=== PATIENT | female | born 1960 | race African-American/Black ===

== ENCOUNTER 2017-10-16 10:12 | Inpatient (IN) | payer MEDICARE, MEDICAID ==
[~2017-10-16] VITALS: Ht 160 cm; Wt 54.0 kg
[2017-10-16] MEDS ORDERED: THEO200T17 PO (10:19)
[2017-10-16] MEDS ORDERED: OXYC10TA58 PO (10:19)
[2017-10-16] MEDS ORDERED: KEPP500 PO (10:19)
[2017-10-16 10:40] LABS: BASOPHILS % 1.9 % (0.0-2.0); EOSINOPHILS % 2.6 % (0.0-5.0); HEMOGLOBIN. 13.1 g/dL (12.0-16.0); LYMPHOCYTES % 33.7 % (20.0-50.0); MEAN CORPUSCULAR HEMOGLOBIN 29.8 pg (28.0-32.0); MEAN CORPUSCULAR VOLUME 90.6 fL (81.0-99.0); MEAN PLATELET VOLUME 8.5 fl (7.4-10.4); MONOCYTES % 7.9 % (2.0-8.0); NEUTROPHILS % 53.9 % (40.0-76.0); PLATELET 290 x1000/uL (130-400); RED BLOOD CELL COUNT 4.41 mill/uL (4.2-5.4)
[2017-10-16 10:45] LABS: CHLORIDE 108 mEq/L (98-107)
[2017-10-16] MEDS ORDERED: DIPHENHYDRAMINE 50MG/ML VIAL IV ONE (10:45)
[2017-10-16] MEDS ORDERED: PROCHLORPERAZINE 10MG/2ML VIAL IV ONE (10:45)
[2017-10-16 10:49] LABS: ETHANOL BLOOD < 10 mg/dL; PROTHROMBIN TIME 10.5 sec (9.4-11.6)
[2017-10-16] MEDS ORDERED: ASPIRIN 325MG TABLET PO ONE (12:00)
[2017-10-16] MEDS ORDERED: ONDANSETRON HCL 4MG/2ML VIAL IV PRN (13:15)
[2017-10-16] MEDS ORDERED: MAGNESIUM/ALUMINUM HYDROXIDE/SIMETHICONE 30ML UDC PO PRN (13:15)
[2017-10-16] MEDS ORDERED: NA PHOS,M-B/NA PHOS,DI-BA ENEMA 118ML PR PRN (13:15)
[2017-10-16] MEDS ORDERED: MORPHINE SULFATE 4 MG/ML CPJ (NOT FOR IM USE) IV PRN (13:15)
[2017-10-16] MEDS ORDERED: ACETAMINOPHEN 325MG TABLET PO PRN (13:15)
[2017-10-16] MEDS ORDERED: CLONIDINE 0.1MG TABLET PO PRN (13:15)
[2017-10-16] MEDS ORDERED: LORAZEPAM 2MG/ML CPJ IV PRN (13:15)
[2017-10-16] MEDS ORDERED: DOCUSATE SODIUM 100MG CAPSULE PO PRN (13:15)
[2017-10-16] MEDS ORDERED: GUAIFENESIN 200MG/10ML SUGAR FREE UDC PO PRN (13:15)
[2017-10-16] MEDS ORDERED: IPRATROPIUM/ALBUTEROL 0.5-3(2.5)MG/3ML NEB INH PRN (13:15)
[2017-10-16 14:19] LABS: CLARITY URINE CLEAR (CLEAR); COLOR URINE YELLOW (YELLOW); KETONES URINE NEGATIVE (NEGATIVE); LEUKOCYTE ESTERASE URINE NEGATIVE (NEGATIVE); NITRITE URINE NEGATIVE (NEGATIVE); OCCULT BLOOD URINE NEGATIVE (NEGATIVE); PH URINE 6.5 (4.5-8.0); PROTEIN URINE NEGATIVE (NEGATIVE); SPECIFIC GRAVITY URINE 1.026 (1.005-1.030)
[2017-10-16 14:39] LABS: CHLORIDE 108 mEq/L (98-107)
[2017-10-16 14:53] LABS: *BARBITURATES SCREEN URINE NEGATIVE (NEGATIVE); *BENZODIAZEPINES SCREEN URINE PRESUMTIVE POSITIVE (NEGATIVE)
[2017-10-16 14:54] LABS: *AMPHETAMINES SCREEN URINE NEGATIVE (NEGATIVE); *COCAINE SCREEN URINE NEGATIVE (NEGATIVE); CANNABINOID URINE SCREEN PRESUMTIVE POSITIVE (NEGATIVE); METHADONE URINE SCREEN NEGATIVE (NEGATIVE); OPIATES URINE SCREEN PRESUMTIVE POSITIVE (NEGATIVE); PHENCYCLIDINE URINE SCREEN NEGATIVE (NEGATIVE)
[2017-10-16 16:20] VITALS: BP 133/85
[2017-10-16] MEDS ORDERED: ASPI-1159 PO (16:24)
[2017-10-16] MEDS ORDERED: ALBU2SYR3 PO (16:25)
[2017-10-16 16:32] VITALS: BP 133/85
[2017-10-16] MEDS: SODIUM CHLORIDE 0.45% 1,000 ML IV SCH (17:16)
[2017-10-16] MEDS: ENOXAPARIN 40MG/0.4ML SYR SUBCUT SCH (17:17)
[2017-10-16 20:00] VITALS: BP 134/77
[2017-10-16] MEDS: HYDROCODONE/ACETAMINOPHEN 10/325MG TABLET PO PRN (23:21)
[2017-10-17] VITALS: BP 154/80
[2017-10-17 04:00] VITALS: BP 136/89
[2017-10-17 07:13] LABS: BASOPHILS % 1.2 % (0.0-2.0); EOSINOPHILS % 4.4 % (0.0-5.0); HEMATOCRIT. 36.7 % (36.0-48.0); HEMOGLOBIN. 12.3 g/dL (12.0-16.0); LYMPHOCYTES % 52.4 % (20.0-50.0); MEAN CORPUSCULAR HEMOGLOBIN 30.3 pg (28.0-32.0); MEAN CORPUSCULAR VOLUME 90.6 fL (81.0-99.0); MEAN PLATELET VOLUME 9.1 fl (7.4-10.4); MONOCYTES % 10.1 % (2.0-8.0); NEUTROPHILS % 31.9 % (40.0-76.0); PLATELET 247 x1000/uL (130-400); RED BLOOD CELL COUNT 4.04 mill/uL (4.2-5.4); RED CELL DISTRIBUTION WIDTH 14.6 % (11.6-14.6)
[2017-10-17 08:00] VITALS: BP 139/90
[2017-10-17 08:22] LABS: CHLORIDE 107 mEq/L (98-107)
[2017-10-17 08:34] LABS: LDL CHOLESTEROL 81 mg/dL (5-100)
[2017-10-17 08:35] LABS: T4 FREE 1.05 ng/dL (0.76-1.46)
[2017-10-17 08:36] LABS: HDL CHOLESTEROL 94 mg/dL (40-59)
[2017-10-17] MEDS: ASPIRIN 81MG EC TABLET PO SCH (09:02)
[2017-10-17] MEDS: SODIUM CHLORIDE 0.45% 1,000 ML IV SCH ×2 (09:02→23:04)
[2017-10-17] MEDS: HYDROCODONE/ACETAMINOPHEN 10/325MG TABLET PO PRN ×3 (11:16→20:33)
[2017-10-17 12:00] VITALS: BP 130/79
[2017-10-17 12:48] LABS: T4 FREE 1.06 ng/dL (0.76-1.46)
[2017-10-17 15:38] LABS: CREATINE KINASE 255 IU/L (26-192)
[2017-10-17 15:39] LABS: CREATINE KINASE MB FRACTION 0.9 ng/mL (0.5-3.6)
[2017-10-17 16:00] VITALS: BP 105/78
[2017-10-17] MEDS: ENOXAPARIN 40MG/0.4ML SYR SUBCUT SCH (17:00)
[2017-10-17 20:00] VITALS: BP 124/56
[2017-10-17] MEDS ORDERED: NAPROXEN 375MG TABLET PO PRN (20:00)
[2017-10-17] MEDS: LEVETIRACETAM 500MG TABLET PO SCH (20:32)
[2017-10-17] MEDS ORDERED: AMITRIPTYLINE 10MG TABLET PO SCH (21:00)
[2017-10-17 22:58] LABS: CREATINE KINASE 225 IU/L (26-192)
[2017-10-17 22:59] LABS: CREATINE KINASE MB FRACTION 0.6 ng/mL (0.5-3.6)
[2017-10-18 00:14] VITALS: BP 133/85
[2017-10-18 04:00] VITALS: BP 138/78
[2017-10-18 08:00] VITALS: BP 133/91
[2017-10-18 08:17] LABS: CREATINE KINASE 188 IU/L (26-192)
[2017-10-18 08:18] LABS: CREATINE KINASE MB FRACTION 0.5 ng/mL (0.5-3.6)
[2017-10-18] MEDS: HYDROCODONE/ACETAMINOPHEN 10/325MG TABLET PO PRN (08:21)
[2017-10-18] MEDS: LEVETIRACETAM 500MG TABLET PO SCH (08:59)
[2017-10-18] MEDS: ASPIRIN 81MG EC TABLET PO SCH (08:59)
[2017-10-18 11:18] VITALS: BP 133/91
== END 2017-10-18 12:30 | disposition home or self-care (01) | DRG 69 ==
LOC: ER 10:38 → 7WST 13:32 → EDBEDREQ 13:35 → EDBEDREQTM 13:35 → EDBEDREQSVC 13:35 → ENRESERV 13:46
PROVIDERS: ADMIT Internal Medicine; ATTEND Internal Medicine
DX: G45.9 Transient cerebral ischemic attack, unspecified (principal); F31.9 Bipolar disorder, unspecified; G40.909 Epilepsy, unspecified, not intractable, without status epilepticus; G43.909 Migraine, unspecified, not intractable, without status migrainosus; G89.4 Chronic pain syndrome; I10 Essential (primary) hypertension; J45.909 Unspecified asthma, uncomplicated; Z79.82 Long term (current) use of aspirin; Z79.899 Other long term (current) drug therapy; Z80.3 Family history of malignant neoplasm of breast; Z80.0 Family history of malignant neoplasm of digestive organs
CPT/HCPCS: 36415; 70450; 71045; 80048; 80053; 80061; 80198; 80305; 81003; 82550; 82553; 82962; 83036; 83880; 84439; 84443; 84484; 85025; 85379; 85610; 93005; 93306; 96374; 96375; 97161; 99285; G0482; J0780; J1200; J1650

== ENCOUNTER 2018-05-17 19:14 | Emergency (ER) | payer MEDICARE, MEDICAID ==
[~2018-05-17] VITALS: Ht 162.6 cm; Wt 55.2 kg
[~2018-05-17 19:14] MED LIST: ALBU2SYR3 PO; ASPI-1159 PO; KEPP500 PO; OXYC10TA58 PO; THEO200T17 PO
[2018-05-17] MEDS ORDERED: ONDANSETRON HCL 4MG/2ML INJ IV STA (21:45)
[2018-05-17] MEDS ORDERED: MAGNESIUM/ALUMINUM HYDROXIDE/SIMETHICONE 30ML UDC PO STA (21:45)
[2018-05-17] MEDS ORDERED: PANTOPRAZOLE SODIUM 40 MG/VIAL IV STA (21:45)
[2018-05-17] MEDS ORDERED: SODIUM CHLORIDE 0.9% 1,000 ML IV ONE (21:45)
[2018-05-18 00:18] LABS: BASOPHILS % 0.9 % (0.0-2.0); EOSINOPHILS % 0.8 % (0.0-5.0); HEMATOCRIT. 37.3 % (36.0-48.0); HEMOGLOBIN. 12.4 g/dL (12.0-16.0); LYMPHOCYTES % 48.9 % (20.0-50.0); MEAN CORPUSCULAR HEMOGLOBIN 30.6 pg (28.0-32.0); MEAN CORPUSCULAR VOLUME 91.8 fL (81.0-99.0); MEAN PLATELET VOLUME 8.7 fl (7.4-10.4); NEUTROPHILS % 40.4 % (40.0-76.0); PLATELET 216 x1000/uL (130-400); RED BLOOD CELL COUNT 4.06 mill/uL (4.2-5.4); RED CELL DISTRIBUTION WIDTH 14.8 % (11.6-14.6)
[2018-05-18 00:26] LABS: CHLORIDE 113 mEq/L (98-107); INR 1.1; PROTHROMBIN TIME 10.9 sec (9.1-11.1)
[2018-05-18 01:44] VITALS: BP 112/80
== END 2018-05-18 01:50 | disposition home or self-care (01) ==
LOC: ER 19:14
DX: R10.13 Epigastric pain (principal); R11.2 Nausea with vomiting, unspecified; J45.909 Unspecified asthma, uncomplicated; F31.9 Bipolar disorder, unspecified; K21.9 Gastro-esophageal reflux disease without esophagitis; R56.9 Unspecified convulsions; F12.10 Cannabis abuse, uncomplicated; Z79.82 Long term (current) use of aspirin; Z79.899 Other long term (current) drug therapy; Z98.84 Bariatric surgery status; Z98.890 Other specified postprocedural states
CPT/HCPCS: 36415; 74176; 80053; 83690; 85025; 85610; 96361; 96374; 96375; 99285; C9113; J2405; J7030